=== PATIENT | female | born 2000 | race Asian ===

== ENCOUNTER 2023-11-19 19:22 | Emergency (ER) | payer OTHER ==
--- NOTE | 2023-11-19 20:33 | ED Physician Documentation ---
History of Present Illness - Stated complaint Stated Complaint: TORRE/N - Chief complaint Chief Complaint: Heent - History of Present Illness Timing: Prior to arrival - Additonal information Additional information: Patient is a 23-year-old female presenting to the emergency department with headache that started on the back of her head that was at the top of her head. Patient notes she regularly gets these headaches and has been getting them for years now. She notes they start in the same spot and last for about 1 to 2 weeks she takes ibuprofen for the pain with minimal relief. PD PAST MEDICAL HISTORY - Past Medical History Past Medical History: No Cardiovascular: None Respiratory: None Neuro: None Endocrine/Autoimmune: None GI: None LEAN CONSULTANT: None : None HEENT: None Psych: None Musculoskeletal: None Derm: None - Past Surgical History Past Surgical History: Yes /LEAN CONSULTANT: Other - Present Medications Home Medications: Ambulatory Orders Medication Instructions Recorded Confirmed Metoclopramide [Reglan] 10 mg PO Q6H PRN #20 tablet 11/19/23 Naproxen 250 mg PO BID PRN #15 tablet 11/19/23 diphenhydrAMINE [Benadryl] 25 mg PO HS #10 cap 11/19/23 - Allergies Allergies/Adverse Reactions: Allergies Allergy/AdvReac Type Severity Reaction Status Date / Time Penicillins AdvReac Rash Verified 11/19/23 19:44 - Social History Does the pt smoke?: No Smoking Status: Never smoker Does the pt drink ETOH?: No Does the pt have substance abuse?: No - Immunizations Immunizations are current?: Yes - POLST Patient has POLST: No PD ED PE NORMAL - Vitals Vital signs reviewed: Yes - General General: Alert and oriented X 3 - HEENT HEENT: Atraumatic, PERRL - Neck Neck: Supple, no meningeal sign, No adenopathy, C-Spine cleared by NEXUS criteria - Cardiac Cardiac: RRR, No murmur, No gallop, No rub - Respiratory Respiratory: No respiratory distress - Abdomen Abdomen: Normal bowel sounds - Derm Derm: Normal color - Extremities Extremities: No deformity, Normal ROM s pain, No edema - Neuro Neuro: Alert and oriented X 3, 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 Patient notes history of recurrent migraines lasting 1 to 2 weeks she called her PCPs office who sent her here for persistent head pain. Patient notes pain is not worse than normal no photophobia no vision changes no numbness tingling weakness in upper or lower extremities no fevers or neck pain associated with her symptoms. Patient took Midol today with mild relief in her symptoms. Vitals stable on arrival physical exam shows no cranial nerve deficits ANO x 3 able to answer questions. Discussed with patient she does not have a ride home will give show dose of Toradol IM. Discussed with patient given recurrent chronic symptoms no acute symptoms with no focal neurodeficits we will hold off on any imaging or labs at this time. Reevaluated patient she notes Toradol improved her symptoms she is requesting more pain medication will give Reglan Benadryl for her to take orally at home and a second shot of Toradol given that did seem to improve her symptoms earlier today. Patient agreeable with this plan she will return with any vision walters ges weakness numbness tingling vomiting fevers neck pain or any other new or worsening symptoms. She will plan to follow-up with her PCP in outpatient setting. Departure - Departure Disposition: 01 Home, Self Care Clinical Impression: Headache Instructions: ED Headache Tension Prescriptions: diphenhydrAMINE [Benadryl] 25 mg PO HS #10 cap Naproxen 250 mg PO BID PRN #15 tablet PRN Reason: Pain Metoclopramide [Reglan] 10 mg PO Q6H PRN #20 tablet PRN Reason: nausea or headache Comments: Your symptoms resolved here in the emergency department you should follow-up with your PCP in the outpatient setting return to the emergency department with any vision changes worsening headaches nausea vomiting numbness tingling weakness. Forms: PCP List
[2023-11-19] MEDS: KETOROLAC 15 MG/ML VIAL IM STA ×2 (20:47→21:58)
[2023-11-19 22:11] VITALS: BP 126/73; O2SAT 98
== END 2023-11-19 22:05 | disposition home or self-care (01) ==
LOC: ED 19:22
DX: R51.9 Headache, unspecified (principal)
CPT/HCPCS: 96372; 99283